=== PATIENT | male | born 1975 | race Caucasian/White ===

== ENCOUNTER 2016-12-25 14:52 | Emergency (ER) | payer SELFPAY ==
[~2016-12-25] VITALS: Ht 172.7 cm; Wt 74.8 kg
[~2016-12-25 14:52] MED LIST: FLEXERIL10 MG PO; KEFLEX 500MG.500 MG PO; LORTAB 5/500 501 TAB PO; NAPROSYN 500MG500 MG PO; NOMEDS; PERCOCET 5/3251 EACH PO; SUBOXONE 8 MG-21 FIL SL
--- OUTSIDE RECORDS SUMMARY | 2016-12-25 15:18 | External Medical Summary Rpt | CCD ---
Author Author , RICARDO SILVA Address Unknown Phone [email or web address] Care Team Providers Care Director Of Campus Recreation Name Role Phone GIO, GIO Unavailable Unavailable CHAUDHARI ALL, CHAUDHARI ALL Unavailable Unavailable [facility] Unavailable Unavailable CTR, [facility] ESME KENISHA, Unavailable Unavailable ESME KENISHA SILVIA, SILVIA Unavailable Unavailable SILVIA PAYAL, SILVIA Unavailable Unavailable PA[facility]AL [facility] Unavailable Unavailable INC, [facility] Unavailable Unavailable HOSPITAL P, [facility] P [facility], Unavailable Unavailable [facility] Unavailable Unavailable [facility]ING [facility], [facility] Unavailable Unavailable INTERNAL MED, [facility], Unavailable Unavailable PLLC, [facility] Unavailable Unavailable EMERGENCY PHYS, [facility] EMERGENCY PHYS USERY AND, USERY AND Unavailable Unavailable JENARO SCHULTE Unavailable Unavailable Purpose Continuity of Care Document - 03-07-2013 through 2016 Problems Code Diagnosis DOS Provider Status R079 CHEST PAIN 06-01-2016 [facility] R1013 EPIGASTRIC 06-01-2016 [facility] Z720 TOBACCO USE 06-01-2016 [facility] P K047 PERIAPICAL 01-24-2015 HIALEAH ABSCESS [facility] MED WITHOUT CTR SINUS 5225 PERIAPICAL 10-04-2014 [facility] ABSCESS PHYSICIANS, WITHOUT PLLC SINUS 7842 SWELLING 10-04-2014 [place] MEDICAL LUMP IN IMAGING ASS HEAD AND NECK 00622 PAIN IN 07-26-2014 [place] JOINT, MEDICAL SHOULDER IMAGING ASS REGION 9592 INJURY 07-26-2014 [place] OTHER&UNSPE MEDICAL CIFIED IMAGING ASS SHOULDER&UP PER ARM V642 SURG/OTH 07-26-2014 [facility] CARRIED OUT INC BECAUSE PTS DECN 26877 GENERALIZED 02-26-2014 [place] ANXIETY [place] DISORDER INTERNAL MED 7242 LUMBAGO 02-26-2014 [facility] INTERNAL MED 7292 UNSPECIFIED 02-26-2014 [facility] NEURALGIA [place] NEURITIS INTERNAL AND MED RADICULITIS 8439 SPRAIN&STRA 01-11-2014 [facility] OF N EMERGENCY UNSPECIFIED PHYS SITE OF HIP&THIGH 8449 SPRAIN&STRA 01-11-2014 [facility] OF N EMERGENCY UNSPECIFIED PHYS SITE OF KNEE&LEG 21334 PAIN IN 09-05-2013 [facility] JOINT PHYSICIANS PELVIC GROUP REGION AND THIGH 7243 SCIATICA 05-15-2013 [facility] 61952 OTHER 03-13-2013 [facility] NONSPECIFIC [facility] ABNORMAL INC FINDING OF LUNG FIELD 17159 OTHER 03-07-2013 [facility] DISEASES OF [facility] LUNG NOT INC ELSEWHERE CLASSIFIED K04.7 PERIAPICAL ABSCESS WITHOUT SINUS R07.9 CHEST PAIN, UNSPECIFIED S76.019A STRAIN OF MUSCLE, FASCIA AND TENDON OF UNSP HIP, INIT ENCNTR S83.90XA SPRAIN OF UNSPECIFIED SITE OF UNSPECIFIED KNEE, INIT ENCNTR Z53.21 PROC/TRTMT NOT CRD OUT D/T PT LV BEF SEEN BY TH CARE PROV Medications Na ND Rx Da Fi Fi Am Da Di Ph RX Ph St me C No te ll ll ou ys ag ar # ys at rm s nt no ma ic us Or Da si cy ia de te s n re d PE 45 05 06 60 2 00 EA Ac RM 80 -2 -[address] ti ET 20 6- 3- 00 00 SI ve HR 26 20 20 48 DE IN 93 17 17 90 7 89 PH 5% AR MA CR CY EA M OF CY NT HI AN A IN C MA 51 04 05 59 2 00 EA Ac LA 67 -1 -[address] ti TH 25 4- 2- 00 00 SI ve IO 29 20 20 48 DE N 40 17 17 36 0. 4 66 PH 5% AR MA LO CY TI ON OF CY NT HI AN A IN C PE 45 04 05 60 2 00 EA Ac RM 80 -1 -[address] ti ET 20 4- 2- 00 00 SI ve HR 26 20 20 48 DE IN 93 17 17 36 7 67 PH 5% AR MA CR CY EA M OF CY NT HI AN A IN C Procedures Procedure [place] [address] PSYCHIATRIC ABDOMEN & 7 MEDICAL PELVIS IMAGING W/O ASS CONTRAST MATERIAL CREATINE 47746 [facility] KINASE 7 [facility] TOTAL INC INC ECG 26437 [facility] ROUTINE 7 [facility] ECG INC INC W/LEAST 12 LDS TRCG ONLY W/O I&R RADIOLOGI 44784 [facility] [facility] EXAM 7 MEDICAL CHEST 2 IMAGING VIEWS ASS FRONTAL&[place] [address] [facility] TROPONIN 7 MEM [facility] QUANTITAT INC INC MARK BLOOD 09205 [facility] COUNT 7 [facility] COMPLETE INC INC AUTO&AUTO DIFRNTL WBC ECG 99912 [facility] ROUTINE 7 PHYSICIAN ECG S, PLLC W/LEAST 12 LDS I&R ONLY COMPREHEN 20976 [facility] SIVE 7 [facility] METABOLIC INC INC PANEL CREATINE 46789 [facility] KINASE MB 7 [facility] [place] [address] [place] ESME MAXILLOFA 5 MEDICAL KENISHA CIAL W/O IMAGING CONTRAST ASS MATERIAL RADEX 10369 [place] CHAUDHARI ALL CLAVICLE 5 MEDICAL COMPLETE IMAGING ASS RADIOLOGI 16455 [facility] C EXAM 4 [facility] CHEST 2 INC INC VIEWS FRONTAL&L ATERAL RADIOLOGI 70470 [facility]AM C 4 [facility] H[facility] EXAMINATI INC INC ON PELVIS 1/2 VIEWS RADEX HIP 97619 [facility] LAM 4 [facility] UNILATERA INC INC L COMPLETE MINIMUM [address] [place] [address] [facility] THYROXINE 4 [facility] TOTAL INC INC SEDIMENTA 97833 [facility] TION RATE 4 [facility] RBC INC INC NON-AUTOM ATED LIPID 98445 [facility] PANEL 4 [facility] INC INC HEMOGLOBI 11568 [facility]AM N 4 [facility] GLYCOSYLA INC INC ERIC A1C COMPREHEN 39542 [facility] SIVE 4 [facility] METABOLIC INC INC PANEL BLOOD 46544 [facility] COUNT 4 [facility] COMPLETE INC INC AUTO&AUTO DIFRNTL WBC Encounters Encounter Start End Date Code Location Performer Type Date HOSPITAL [facility] - 7 7 [facility] OUTPATIEN INC T EMERGENCY 83350 [facility] DEPT 7 7 PHYSICIAN VISIT S, PLLC HIGH SEVERITY& THREAT FUNCJ EMERGENCY 35790 [facility] 7 7 [facility] DEPARTMEN INC T VISIT HIGH/URGE NT SEVERITY HOSPITAL COURTNEY - 5 5 N [facility] OUTPATIEN MED CTR T EMERGENCY 29814 [facility] 5 5 N [facility] MED CTR T VISIT LOW/MODER SEVERITY EMERGENCY 83528 [facility] 5 5 PHYSICIAN PAYAL DEPARTMEN S, [facility] T VISIT HIGH/URGE NT SEVERITY HOSPITAL CAR[facility] - 5 5 [facility] OUTPATIEN INC T EMERGENCY 16540 [facility] 5 5 [facility] T VISIT LIMITED/M INOR PROB OFFICE 74497 [facility]ERY AND OUTPATIEN 4 4 [facility] T NEW 30 INTERNAL MINUTES MED EMERGENCY 57356 [facility] 4 4 [facility] EMERGENCY T VISIT PHYS HIGH/URGE NT SEVERITY OFFICE 93354 [facility] SILVIA OUTPATIEN 4 4 PHYSICIAN PAYAL T VISIT S GROUP 10 MINUTES OFFICE 79478 [facility] SILVIA OUTPATIEN 4 4 PHYSICIAN PAYAL T VISIT S GROUP 10 MINUTES OFFICE 71248 [facility] SILVIA OUTPATIEN 4 4 PHYSICIAN PAYAL T VISIT S GROUP 15 MINUTES HOSPITAL CAR[facility] - 4 4 [facility] OUTPATIEN INC T HOSPITAL CAR[facility] - 4 4 [facility] OUTPATIEN INC T
--- OUTSIDE RECORDS SUMMARY | 2016-12-25 15:18 | External Medical Summary Rpt | CCD ---
Author Author , RICARDO SILVA Address Unknown Phone .PriceBaba Care Team Providers Care Snowboarder Name Role Phone GIO, GIO Unavailable Unavailable CHAUDHARI ALL, CHAUDHARI ALL Unavailable Unavailable [facility] Unavailable Unavailable CTR, [facility] ESME KENISHA, Unavailable Unavailable ESME KENISHA SILVIA, SILVIA Unavailable Unavailable SILVIA PAYAL, SILVIA Unavailable Unavailable PA[facility] Unavailable Unavailable INC, [facility] Unavailable Unavailable HOSPITAL P, [facility], Unavailable Unavailable [facility] Unavailable Unavailable IM[facility]ING [facility], [facility] Unavailable Unavailable INTERNAL MED, [facility] INTERNAL MED [facility], Unavailable Unavailable PLLC, [facility] Unavailable Unavailable EMERGENCY PHYS, [facility] EMERGENCY PHYS USERY AND, USERY AND Unavailable Unavailable JENARO SCHULTE Unavailable Unavailable Purpose Continuity of Care Document - 03-07-2013 through 2016 Problems Code Diagnosis DOS Provider Status R079 CHEST PAIN 06-01-2016 [facility] R1013 EPIGASTRIC 06-01-2016 [facility] Z720 TOBACCO USE 06-01-2016 [facility] P K047 PERIAPICAL 01-24-2015 DEVINE ABSCESS [facility] MED WITHOUT CTR SINUS 5225 PERIAPICAL 10-04-2014 [facility] ABSCESS PHYSICIANS, WITHOUT PLLC SINUS 7842 SWELLING 10-04-2014 [place] MEDICAL LUMP IN IMAGING ASS HEAD AND NECK 18386 PAIN IN 07-26-2014 [place] JOINT, MEDICAL SHOULDER IMAGING ASS REGION 9592 INJURY 07-26-2014 [place] OTHER&UNSPE MEDICAL CIFIED IMAGING ASS SHOULDER&UP PER ARM V642 SURG/OTH 07-26-2014 [facility] MEM HOSP CARRIED OUT INC BECAUSE PTS DECN 36642 GENERALIZED 02-26-2014 [place] ANXIETY [place] DISORDER INTERNAL MED 7242 LUMBAGO 02-26-2014 [facility] INTERNAL MED 7292 UNSPECIFIED 02-26-2014 [facility] NEURALGIA [place] NEURITIS INTERNAL AND MED RADICULITIS 8439 SPRAIN&STRA 01-11-2014 [facility] N EMERGENCY UNSPECIFIED PHYS SITE OF HIP&THIGH 8449 SPRAIN&STRA 01-11-2014 [facility] N EMERGENCY UNSPECIFIED PHYS SITE OF KNEE&LEG 16549 PAIN IN 09-05-2013 [facility] JOINT PHYSICIANS PELVIC GROUP REGION AND THIGH 7243 SCIATICA 05-15-2013 [facility] 93441 OTHER 03-13-2013 [facility] NONSPECIFIC [facility] ABNORMAL INC FINDING OF LUNG FIELD 18390 OTHER 03-07-2013 [facility] DISEASES OF MEM HOSP [...] Procedure [place] [address] [facility] ABDOMEN & 7 MEDICAL PELVIS IMAGING W/O ASS CONTRAST MATERIAL CREATINE 05937 [facility] KINASE 7 [facility] TOTAL INC INC ECG 28972 [facility] ROUTINE 7 [facility] ECG INC INC W/LEAST 12 LDS TRCG ONLY W/O I&R RADIOLOGI 13621 [facility] EXAM 7 MEDICAL CHEST 2 IMAGING VIEWS ASS FRONTAL&[place] [address] [facility] TROPONIN 7 MEM [facility] QUANTITAT INC INC MARK BLOOD 25510 [facility] COUNT 7 [facility] COMPLETE INC INC AUTO&AUTO DIFRNTL WBC ECG 41389 [facility] ROUTINE 7 PHYSICIAN ECG S, PLLC W/LEAST 12 LDS I&R ONLY COMPREHEN 36821 [facility] SIVE 7 [facility] METABOLIC INC INC PANEL CREATINE 98865 [facility] KINASE MB 7 [facility] [place] [address] [place] ESME MAXILLOFA 5 MEDICAL KENISHA CIAL W/O IMAGING CONTRAST ASS MATERIAL RADEX 54132 [place] CHAUDHARI ALL CLAVICLE 5 MEDICAL COMPLETE IMAGING ASS RADIOLOGI 90984 [facility] C EXAM 4 [facility] CHEST 2 INC INC VIEWS FRONTAL&L ATERAL RADIOLOGI 62915 [facility]AM C 4 [facility] EXAMINATI INC INC ON PELVIS 1/2 VIEWS RADEX HIP 09976 [facility] LAM 4 [facility] UNILATERA INC INC L COMPLETE MINIMUM [address] [place] [address] [facility] LAM THYROXINE 4 [facility] TOTAL INC INC SEDIMENTA 72453 [facility] TION RATE 4 [facility] RBC INC INC NON-AUTOM ATED LIPID 73816 [facility] PANEL 4 [facility] INC INC HEMOGLOBI 24149 [facility]AM N 4 [facility] GLYCOSYLA INC INC ERIC A1C COMPREHEN 85509 [facility] SIVE 4 [facility] METABOLIC INC INC PANEL BLOOD 04584 [facility] COUNT 4 [facility] COMPLETE INC INC AUTO&AUTO DIFRNTL WBC Encounters Encounter Start End Date Code Location Performer Type Date HOSPITAL [facility] - 7 7 [facility] OUTPATIEN INC T EMERGENCY 67851 [facility] DEPT 7 7 PHYSICIAN VISIT S, PLLC HIGH SEVERITY& THREAT FUNCJ EMERGENCY 67664 [facility] 7 7 [facility] DEPARTMEN INC T VISIT HIGH/URGE NT SEVERITY HOSPITAL COURTNEY - 5 5 N [facility] OUTPATIEN MED CTR T EMERGENCY 81664 [facility] 5 5 N [facility] MED CTR T VISIT LOW/MODER SEVERITY EMERGENCY 37640 [facility] 5 5 PHYSICIAN PAYAL DEPARTMEN S, [facility] T VISIT HIGH/URGE NT SEVERITY HOSPITAL [facility] - 5 5 [facility] OUTPATIEN INC T EMERGENCY 71807 [facility] 5 5 [facility] T VISIT LIMITED/M INOR PROB OFFICE 83627 [facility] OUTPATIEN 4 4 [facility] T NEW 30 INTERNAL MINUTES MED EMERGENCY 12485 [facility] 4 4 [facility] EMERGENCY T VISIT PHYS HIGH/URGE NT SEVERITY OFFICE 26242 [facility] SILVIA OUTPATIEN 4 4 PHYSICIAN PAYAL T VISIT S GROUP 10 MINUTES OFFICE 45075 [facility] SILVIA OUTPATIEN 4 4 PHYSICIAN PAYAL T VISIT S GROUP 10 MINUTES OFFICE 72772 [facility] SILVIA OUTPATIEN 4 4 PHYSICIAN PAYAL T VISIT S GROUP 15 MINUTES HOSPITAL [facility] - 4 4 [facility] OUTPATIEN INC T HOSPITAL CAR[facility] - 4 4 [facility] OUTPATIEN INC T
--- NOTE | 2016-12-25 15:19 | Emergency Room Report ---
History of Present Illness Time Seen by MD Pitts Presenting Problem in Triage Pt arrived:Walked Presenting Problem:PT HAS LACERATION ON THE LEFT HAND BETWEEN THE THUMB AND POINTER FINGER Onset of symptoms date/time:/ or onset unknown for:MEDICAL HX UNKNOWN Treatment Prior to Arrival: [employer] [facility] Provided by: Sepsis Risk Assessment: Temp: 98.5 B/P: MAP: Pulse: 94 Resp: 16 Recent fever? N Clinical Suspician of Infection? N Mental Status: 1 - Regular (Normal Baseline) Sepsis Risk:Low Sepsis Risk Have you (or family members/close friends) recently traveled outside the [place]? N If Yes, where/when: Have you had exposure to infectious disease within the past month? N TB? Other? Specify: Source patient, RN notes reviewed Exam Limitations no limitations Comment Pt cut his left hand in the web between his thumb and index finger on a piece of lindsey just prior to arrival. He was given a TDap in the ED and has no loss of sensation and full movement in hand Cardiac Chest Pain Chest pain indicative of cardiac No ALLERGIES Coded Allergies: No Known Allergies (12/25/16) Home Medications Reported Medications BUPRENORPHINE HCL/NALOXONE HCL (Suboxone 8 MG-2 MG Sl Film) 1 SL PRN PRN ANXIETY History Medical History General CAD? No Angina: No FL: No Hypertension? No Hyperlipidemia? Yes CHF? No DVT? No PE? No COPD? No Asthma? No Anemia? No GERD? No Gastric ulcers? No GI Bleed? No Hernia? Yes Thyroid Problems? No Hypothyroidism? No CVA? No Seizures? No Diabetes? No Insulin Dependent: No Insulin Pump: No Home FSBS? No Renal Insuffiency? No End Stage Renal Disease? No UTI? No Stones? No BPH? No GB Disease: No Nephritic Syndrome? No Asplenia? No Hepatitis? No Sickle Cell Disease? No Arthritis? No Migraines? No Cataracts? No Glaucoma? No MRSA? No HIV? No TB? No Anxiety? No Depression? No Cancer? No More? No Immunization Hx DT/Tetanus 1-4 YRS Surgical Hx Previous Surgery?N Social History Smoking Hx Smoker: Current Every Day Smoker Tobacco: Yes Type Cigarettes Packs/day < 1 Pack Alcohol Alcohol: No Review of Systems All Other Systems Reviewed and Negative Constitutional see HPI Skin other (laceration left hand) Physical Exam Vital Signs Vital Signs Date Time Temp Pulse Resp B/P Pulse O2 O2 Flow FiO2 Ox Delivery Rate 12/25 1503 98.5 94 16 98 General Appearance normal appearance, WD/WN, no apparent distress Respiratory Status No: respiratory distress. Cardiovascular normal exam, regular rate/rhythm, no peripheral edema Extremities 1 cm laceration in the web between his left thumb and left index finger Neurologic alert, playground supervisor II-XII nml as tested, normal exam Medical Decision Making LABS/Meds/Orders Pt receiving controlled substance in ED? No Results/Orders Current Medication Orders Sig/Deisree Start time Last Medication Dose Route Stop Time Status Admin Lidocaine HCl 0 .STK-MED ONE 12/25 1518 DC .ROUTE Diphtheria/Pertussis/ 0.5 ML ONCE ONE 12/25 1515 DC 12/25 Tetanus Vacc IM 12/26 1515 1510 Diphtheria/Pertussis/ 0 .STK-MED ONE 12/25 1509 DC Tetanus Vacc IM Procedures Laceration/Wound Repair Laceration/Wound Repair Risks/benefits discussed with pt/guardian? Yes Tetanus status not up to date, Given Tdap in the ED Wound Location hand (Left) Wound Length (cm) 2 Wound's Depth, Shape sucutaneous tissue, linear, digital artery ? severed and wound bleeding profusely... Wound Explored no FB identified Risk of retained FB explained to pt/guardian? No Irrigated w/ Saline (ccs) 100 Wound Prep Hibiclens, Saline Anesthesia 1% Lidocaine Volume Anesthetic (ccs) 10 Wound Debrided none Wound Repaired With sutures Suture Size/Type 5:0, Ethilon Layer Closure No Total Number Sutures 7 Sterile Dressing Applied Yes Splint Applied No Departure Departure Time of Disposition 1607 Disposition DC/XFER from ER to [facility] Clinical Impression Primary Impression: Laceration of left hand with complication Qualifiers: Encounter type: initial encounter Qualified Code: S61.412A - Laceration without foreign body of left hand, initial encounter Condition STABLE Additional Instructions I explored the wound and did not see anything like a tendon laceration but the wound bled profusely. I put 7 stitches in the wound and had pt keep pressure on it but it is still oozing a little. I spoke with Hand Surgery at , Dr. Galindo, and he will see the patient in the ED at to evaluate further. Discharge Counseling Counseled pt/family regarding diagnosis, test results, medications/RX, home care, follow up needs Prescriptions Current Visit Scripts Cephalexin (Keflex 500MG) 500 MG PO QID #40 CAP ED Critical Care Critical Care No If Critical Care minutes are documented, the time involved in the performance of seperately reportable procedures was not counted toward critical care time documented. I directly delivered medical care to this critically ill and/or injured patient. Timely evaluation and treatment was necessary to address the significant organ system(s) dysfunction present in this patient. at 1610
--- OUTSIDE RECORDS SUMMARY | 2016-12-25 15:19 | External Medical Summary Rpt ---
Author Author RICARDO Belcher, [employer] Organization [employer] Address Unknown Phone Unavailable
--- OUTSIDE RECORDS SUMMARY | 2016-12-25 15:19 | External Medical Summary Rpt | CCD ---
Author Author , RICARDO SILVA Address Unknown Phone [email or web address] Care Team Providers Care Beer Cooler Name Role Phone [facility] Unavailable Unavailable CTR, [facility] ESME KENISHA, Unavailable Unavailable ESME KENISHA SILVIA, SILVIA Unavailable Unavailable SILVIA PAYAL, SILVIA Unavailable Unavailable [facility] Un[facility] Unavailable INC, [facility] Unavailable [facility]available HOSPITAL P, [facility], Unavailable Unavailable [facility] Unavailable Unavailable IMAGING ASS, [facility] YANA MILLAN JR, JR Unavailable Unavailable [facility] Unavailable Unavailable INTERNAL MED, [facility] INTER[facility] MED [facility], Unavailable Unavailable PLLC, [facility] Unavailable Unavailable EMERGENCY PHYS, [facility] EMERGENCY PHYS USERY AND, USERY AND Unavailable Unavailable JENARO RACHEL, JENARO RACHEL Unavailable Unavailable Purpose Continuity of Care Document - 03-07-2013 through 2016 Problems Code Diagnosis DOS Provider Status R079 CHEST PAIN 06-01-2016 [facility] R1013 EPIGASTRIC 06-01-2016 [facility] Z720 TOBACCO USE 06-01-2016 [facility] P K047 PERIAPICAL 01-24-2015 [place] ABSCESS [facility] MED WITHOUT CTR SINUS 5225 PERIAPICAL 10-04-2014 [facility] ABSCESS PHYSICIANS, WITHOUT PLLC SINUS 7842 SWELLING 10-04-2014 [place] M[place] MEDICAL LUMP IN IMAGING ASS HEAD AND NECK 37343 PAIN IN 07-26-2014 [place] JOINT, MEDICAL SHOULDER IMAGING ASS REGION 9592 INJURY 07-26-2014 [place] OTHER&UNSPE MEDICAL CIFIED IMAGING ASS SHOULDER&UP PER ARM V642 SURG/OTH 07-26-2014 [facility] CARRIED OUT INC BECAUSE PTS DECN 39473 GENERALIZED 02-26-2014 [facility] ANXIETY [place] DISORDER INTERNAL MED 7242 LUMBAGO 02-26-2014 [facility] [place] INTERNAL MED 7292 UNSPECIFIED 02-26-2014 [place] NEURALGIA [place] NEURITIS INTERNAL AND MED RADICULITIS 8439 SPRAIN&STRA 01-11-2014 [facility] N EMERGENCY UNSPECIFIED PHYS SITE OF HIP&THIGH 8449 SPRAIN&STRA 01-11-2014 [facility] N EMERGENCY UNSPECIFIED PHYS SITE OF KNEE&LEG 03351 PAIN IN 09-05-2013 [facility] JOINT PHYSICIANS PELVIC GROUP REGION AND THIGH 7243 SCIATICA 05-15-2013 [facility] 50742 OTHER 03-13-2013 [facility]SPECIFIC [facility] ABNORMAL INC FINDING OF LUNG FIELD 60021 OTHER 03-07-2013 [facility] DISEASES OF [facility] LUNG NOT INC ELSEWHERE CLASSIFIED Medications Na ND Rx Da Fi Fi [...] Procedures Procedure DOS Code Location Performer Comment COMPREHEN 71416 [facility] SIVE 7 [facility] METABOLIC INC INC PANEL CREATINE 57017 [facility] KINASE MB 7 [facility] FRACTION INC INC ONLY ECG 52624 [facility] ROUTINE 7 [facility] ECG INC INC W/LEAST 12 LDS TRCG ONLY W/O I&[place] [address] [facility] ABDOMEN & 7 [facility] PELVIS INC INC W/O CONTRAST MATERIAL CREATINE 79077 [facility] KINASE 7 [facility] TOTAL INC INC ECG 04331 [facility] MILLAN JR ROUTINE 7 [facility] W/LEAST P 12 LDS I&R ONLY RADIOLOGI 60687 [facility] Ruiz EXAM 7 [facility] CHEST 2 INC INC VIEWS FRONTAL&[place] [address] CARO[facility] LAM TROPONIN 7 [facility] QUANTITAT INC INC MARK BLOOD 07747 [facility] COUNT 7 [facility] H[facility] COMPLETE INC INC AUTO&[place] [address] [place] ESME MAXILLOFA 5 MEDICAL KENISHA CIAL W/O IMAGING CONTRAST ASS MATERIAL RADEX 15728 [facility] CLAVICLE 5 [facility] COMPLETE INC INC RADIOLOGI 90362 [facility] C EXAM 4 [facility] CHEST 2 INC INC VIEWS FRONTAL&L ATERAL RADIOLOGI 12133 [facility] LAM C 4 [facility] EXAMINATI INC INC ON PELVIS 1/2 VIEWS RADEX HIP 43461 [facility] LAM 4 [facility] UNILATERA INC INC L COMPLETE MINIMUM [address] [place] [address] [facility] LAM THYROXINE 4 [facility] H[facility] TOTAL INC INC LIPID 26353 [facility] PANEL 4 [facility]OS[facility] INC INC SEDIMENTA 92601 [facility] LAM TION RATE 4 [facility]OS[facility] RBC INC INC NON-AUTOM ATED HEMOGLOBI 85950 [facility] LAM N 4 [facility] HOSP GLYCOSYLA INC INC ERIC A1C BLOOD 31885 [facility]AM COUNT 4 [facility] MEM HOSP COMPLETE INC INC AUTO&AUTO DIFRNTL WBC COMPREHEN 68403 [facility] SIVE 4 [facility] MEM HOSP METABOLIC INC INC PANEL Encounters Encounter Start End Date Code Location Performer Type Date HOSPITAL [facility] Madden 7 [facility] OUTPATIEN INC T EMERGENCY 83806 [facility] Madden 7 [facility] DEPARTMEN INC T VISIT HIGH/URGE NT SEVERITY EMERGENCY 62185 [facility] DEPT 7 7 PHYSICIAN VISIT S, PLL HIGH SEVERITY& THREAT [facility] YENYTO - 5 5 N [facility] OUTPATIEN MED CTR T EMERGENCY 53092 [facility] 5 5 N [facility] T VISIT LOW/MODER SEVERITY EMERGENCY 70450 [facility] 5 5 PHYSICIAN PAYAL DEPARTMEN S, PLLC T VISIT HIGH/URGE NT SEVERITY HOSPITAL [facility] - 5 5 [facility] OUTPATIEN INC T EMERGENCY 42407 [facility] 5 5 [facility] DEPARTMEN INC T VISIT LIMITED/M INOR PROB OFFICE 08024 [facility] 4 4 [place] T NEW 30 INTERNAL MINUTES MED EMERGENCY 97769 [facility] 4 4 JENIFER [facility] EMERGENCY T VISIT PHYS HIGH/URGE NT SEVERITY OFFICE 69168 [facility] SILVIA OUTPATIEN 4 4 PHYSICIAN PAYAL T VISIT S GROUP 10 MINUTES OFFICE 79703 [facility] S[facility] OUTPATIEN 4 4 PHYSICIAN PAYAL T VISIT S GROUP 10 MINUTES OFFICE 05225 [facility] S[facility] OUTPATIEN 4 4 PHYSICIAN PAYAL T VISIT S GROUP 15 MINUTES HOSPITAL [facility] - 4 4 [facility] OUTPATIEN INC T HOSPITAL [facility] 4 4 [facility] OUTPATIEN INC T
--- OUTSIDE RECORDS SUMMARY | 2016-12-25 15:19 | External Medical Summary Rpt | CCD ---
Demographics Preferred Language Kyrgyz Marital Status Unknown Holiness Affiliation Unknown Race Unknown Ethnic Group Unknown Author Author , KATHERINE SILVA Address Unknown Phone Immunization No patient found.
--- OUTSIDE RECORDS SUMMARY | 2016-12-25 15:19 | External Medical Summary Rpt | CCD ---
Author Author , RICARDO SILVA Address Unknown Phone [email or web address] Care Team Providers Care Auto Machinist Name Role Phone [facility] Unavailable Unavailable CTR, [facility] ESME KENISHA, Unavailable Unavailable ESME KENISHA SILVIA, SILVIA Unavailable Unavailable SILVIA PAYAL, SILVIA Unavailable Unavailable [facility] Unavailable Unavailable [facility], [facility] Unavailable Unavailable HOSPITAL P, [facility] P [facility], Unavailable Unavailable [facility] Unavailable Unavailable [facility], [facility] YANA MILLAN JR, JR Unavailable Unavailable [facility] Unavailable Unavailable INTERNAL MED, [facility], Unavailable Unavailable [facility], [facility] Unavailable Unavailable EMERGENCY PH[facility], [facility], [facility] Unavailable Unavailable JENARO RACHEL, JENARO RACHEL Unavailable Unavailable Purpose Continuity of Care Document - 03-07-2013 through 2016 Problems Code Diagnosis DOS Provider Status R079 CHEST PAIN 06-01-2016 [facility] R1013 EPIGASTRIC 06-01-2016 [facility] Z720 TOBACCO USE 06-01-2016 [facility] P K047 PERIAPICAL 01-24-[address] [place] [address] [facility] WITHOUT CTR SINUS 5225 PERIAPICAL 10-04-2014 [facility]ESS [facility] WITHOUT [facility] SINUS 7842 SWELLING 10-04-2014 [facility] LUMP IN [facility] HEAD AND NECK 45141 PAIN IN 07-26-2014 [facility] JOINT, MEDICAL SHOULDER [facility] REGION 9592 INJURY 07-26-2014 [facility] OTHER&[facility] CIFIED [facility] ASS SHOULDER&UP PER ARM V642 SURG/OTH 07-26-2014 [facility] CARRIED OUT INC BECAUSE PTS DECN 10786 GENERALIZED 02-26-2014 [facility] [place] DISORDER INTERNAL MED 7242 LUMBAGO 02-26-2014 [facility] [place] [facility] 7292 UNSPECIFIED 02-26-2014 [facility] NEURALGIA [place] NEURITIS INTERNAL AND MED RADICULITIS 8439 SPRAIN&STRA 01-11-2014 [facility] N EMERGENCY UNSPECIFIED PHYS SITE OF HIP&THIGH 8449 SPRAIN&STRA 01-11-2014 [facility] N EMERGENCY UNSPECIFIED PHYS SITE OF KNEE&LEG 78097 PAIN IN 09-05-2013 [facility] JOINT PHYSICIANS PELVIC GROUP REGION AND THIGH 7243 SCIATICA 05-15-2013 [facility] 18622 OTHER 03-13-2013 [facility] ABNORMAL INC FINDING OF LUNG FIELD 36037 OTHER 03-07-2013 [facility] DISEASES OF [facility] [...] Procedure DOS Code Location Performer Comment COMPREHEN 86344 [facility] SIVE 7 [facility] METABOLIC INC INC PANEL CREATINE 64748 [facility] KINASE MB 7 [facility] FRACTION INC INC ONLY ECG 34844 [facility] ROUTINE 7 [facility] ECG INC INC W/LEAST 12 LDS TRCG ONLY W/O I&[place] [address] [facility] ABDOMEN & 7 [facility] PELVIS INC INC W/O CONTRAST MATERIAL CREATINE 24126 [facility] L[facility] KINASE 7 [facility] TOTAL INC INC ECG 85940 [facility] MILLAN JR ROUTINE 7 [facility] W/LEAST P 12 LDS I&R ONLY RADIOLOGI 52713 [facility] Ruiz EXAM 7 [facility] CHEST 2 INC INC VIEWS FRONTAL&[place] [address] [facility] TROPONIN 7 [facility] QUANTITAT INC INC MARK BLOOD 51098 [facility] COUNT 7 [facility] COMPLETE INC INC AUTO&[place] [address] [facility] MAXILLOFA 5 MEDICAL KENISHA CIAL W/O IMAGING CONTRAST ASS MATERIAL RADEX 44634 [facility] CLAVICLE 5 [facility] COMPLETE INC INC RADIOLOGI 22694 [facility] C EXAM 4 [facility] CHEST 2 INC INC VIEWS FRONTAL&L ATERAL RADIOLOGI 55669 [facility] C 4 [facility] EXAMINATI INC INC ON PELVIS 1/2 VIEWS RADEX HIP 19479 [facility] LAM 4 [facility] UNILATERA INC INC L COMPLETE MINIMUM [address] [place] [address] [facility] THYROXINE 4 [facility] TOTAL INC INC LIPID 40505 [facility] PANEL 4 [facility] INC INC SEDIMENTA 58800 [facility] TION RATE 4 [facility] H[facility] RBC INC INC NON-AUTOM ATED HEMOGLOBI 29096 [facility] N 4 [facility] GLYCOSYLA INC INC ERIC A1C BLOOD 49713 [facility] COUNT 4 [facility] MEM HOS[facility] COMPLETE INC INC AUTO&AUTO DIFRNTL WBC COMPREHEN 48821 [facility] SIVE 4 [facility] MEM HOS[facility] METABOLIC INC INC PANEL Encounters Encounter Start End Date Code Location Performer Type Date HOSPITAL [facility] Madden 7 [facility] OUTPATIEN INC T EMERGENCY 77219 [facility] Madden 7 [facility] DEPARTMEN INC T VISIT HIGH/URGE NT SEVERITY EMERGENCY 97128 [facility] DEPT 7 7 PHYSICIAN VISIT S, PLL HIGH SEVERITY& THREAT [facility] YENYTO - 5 5 N [facility] T EMERGENCY 10573 [place] [facility] VISIT LOW/MODER SEVERITY EMERGENCY 30937 [facility] VE[facility] 5 5 PHYSICIAN PA[facility] DEPARTMEN S, PLLC T VISIT HIGH/URGE NT SEVERITY HOSPITAL [facility] - 5 5 [facility] OUTPATIEN INC T EMERGENCY 99840 [facility] 5 5 [facility] DEPARTMEN INC T VISIT LIMITED/M INOR PROB OFFICE 99631 [facility] 4 4 [place] T NEW 30 INTERNAL MINUTES MED EMERGENCY 65248 [facility] 4 4 [facility] EMERGENCY T VISIT PHYS HIGH/URGE NT SEVERITY OFFICE 06274 [facility] S[facility] OUTPATIEN 4 4 PHYSICIAN PAYAL T VISIT S GROUP 10 MINUTES OFFICE 90719 [facility] OUTPATIEN 4 4 PHYSICIAN PAYAL T VISIT S GROUP 10 MINUTES OFFICE 30010 [facility] OUTPATIEN 4 4 PHYSICIAN PAYAL T VISIT S GROUP 15 MINUTES HOSPITAL [facility] - 4 4 [facility] OUTPATIEN INC T HOSPITAL [facility] - 4 4 [facility] OUTPATIEN INC T
--- OUTSIDE RECORDS SUMMARY | 2016-12-25 15:19 | External Medical Summary Rpt | CCD ---
Demographics Preferred Language Tajik Marital Status Unknown Baptist Affiliation Unknown Race Unknown Ethnic Group Unknown Author Author , KATHERINE SILVA Address Unknown Phone Immunization No patient found.
[2016-12-25] MEDS ORDERED: KEFLEX500 M1 PO (16:09)
[2016-12-25 16:25] VITALS: BP 133/70
== END 2016-12-25 16:32 | disposition short-term general hospital (02) ==
LOC: UTC 14:52 → ER 14:52
PROC: 0HQGXZZ Repair Left Hand Skin, External Approach (ICD-10-PCS; principal; 2016-12-25)
DX: S61.412A Laceration without foreign body of left hand, initial encounter (principal); Z23 Encounter for immunization; F17.210 Nicotine dependence, cigarettes, uncomplicated; W45.8XXA Other foreign body or object entering through skin, initial encounter; Y92.009 Unspecified place in unspecified non-institutional (private) residence as the place of occurrence of the external cause